=== PATIENT | female | born 1980 | race Caucasian/White ===

== ENCOUNTER 2017-05-03 09:06 | Emergency (ER) | payer SELFPAY ==
[2015-02-28 15:12] VITALS: BMI 22.2
[~2017-05-03 09:06] MED LIST: BAYER CHEWABLE81 MG PO; CATAPRES0.1 MG PO; IBUPROFEN800 MG PO; OXYMORPHONE HCL10 M1 PO; ZEBETA5 MG PO
== END 2017-05-03 17:04 | disposition home or self-care (01) ==
LOC: D.ER 09:06
DX: R51 Headache (principal)

== ENCOUNTER 2019-07-01 19:50 | Inpatient (IN) | payer MEDICAID ==
[~2019-07-01] VITALS: Ht 149.9 cm; Wt 57.6 kg
[2019-07-01 21:49] VITALS: BP 134/96
--- NOTE | 2019-07-01 21:56 | NUR ---
PT TO RADIOLOGY.
--- NOTE | 2019-07-01 22:23 | NUR ---
PT RETURNED FROM RADIOLOGY.
[2019-07-01 22:57] LABS: BASOPHILS 0.4 % (0-2); EOSINOPHILS 0.9 % (0-7); HEMATOCRIT 38.5 % (36.0-48.0); HEMOGLOBIN 11.1 g/dL (12-16); IMMATURE GRANULOCYTES 0.2 % (0-5); LYMPHOCYTES 26.3 % (15-50); MCH 22.8 pg (26.0-34.0); MCHC 28.8 g/dL (31.0-37.0); MCV 79.1 fL (80.0-100.0); MEAN PLATELET VOLUME 9.4 fL (7.4-10.4); MONOCYTES 7.6 % (2-11); NEUTROPHILS 64.6 % (40-80); PLATELET COUNT 218 10x3/uL (130-400); RBC 4.87 10x6/uL (4.00-5.40); WBC 5.6 10x3/uL (4.8-10.8)
[2019-07-01 23:12] LABS: ANION GAP 13.8 mmol/L (8-16); CALCIUM 7.9 mg/dL (8.5-10.1); CARBON DIOXIDE 24.4 mmol/L (21.0-32.0); CREATININE - SERUM 1.3 mg/dL (0.6-1.3); POTASSIUM - SERUM 5.2 mmol/L (3.5-5.1)
[2019-07-01 23:23] LABS: BILIRUBIN NEGATIVE (NEGATIVE); GLUCOSE NEGATIVE (NEGATIVE); KETONE NEGATIVE (NEGATIVE); NITRITE NEGATIVE (NEGATIVE)
[2019-07-01 23:25] LABS: BACTERIA MODERATE /hpf (NEGATIVE); EPITHELIAL CELLS 0-5 /hpf (0-5); RED CELLS - URINE 0-5 /hpf (0-5); WHITE CELLS - URINE 0-5 /hpf (NEGATIVE)
[2019-07-01 23:29] LABS: ALBUMIN 3.1 g/dL (3.4-5.0); BILIRUBIN - TOTAL 1.62 mg/dL (0.2-1.3); C-REACTIVE PROTEIN 0.6 mg/dL (0.0-0.9); PROTEIN - SERUM 7.1 g/dL (6.4-8.2)
--- NOTE | 2019-07-01 23:34 | NUR ---
PT INFORMED OF VQ SCAN, VERBALIZES UNDERSTANDING, DENIES ANY NEEDS AT THIS TIME. CALL LIGHT WITHIN REACH. WILL CONTINUE TO MONITOR.
[2019-07-02] VITALS (9 sets, daily range): BP systolic 110–149; BP diastolic 74–103; Ht 149.9 cm; Wt 57.6 kg
--- NOTE | 2019-07-02 02:52 | NUR ---
PT RESTING IN SEMI FOWLERS POSITION, STATES SHE HAS ABD PAIN. EDP NOTIFIED. NO VERBAL ORDERS GIVEN.
[2019-07-02 02:54] LABS: AMYLASE - SERUM 41 U/L (25-115)
[2019-07-02 02:59] LABS: LIPASE 40 U/L (73-393)
--- NOTE | 2019-07-02 04:19 | NUR ---
PT AMBULATED TO WHEELCHAIR WITH STEADY GAIT, AND FROM WHEELCHAIR TO BR IN MEDSURG ROOM. NURSE NOTIFIED THAT PT IN BATHROOM.
[2019-07-02 15:50] LABS: % SATURATION 5 % (15-55); IRON 23 ug/dl (35-150); TOTAL IRON BIND CAPACITY 448 ug/dl (260-445); UNSAT IRON BIND CAPACITY 425 ug/dl (150-375)
[2019-07-02 16:00] LABS: CKMB 1.4 U/L (0.0-3.6); CREATINE KINASE 66 UL (21-215); TROPONIN-I 0.016 ng/mL (0.000-0.060)
[2019-07-02 19:18] LABS: UDS - AMPHET NEGATIVE QUAL (NEGATIVE); UDS - BARB NEGATIVE QUAL (NEGATIVE); UDS - BENZO NEGATIVE QUAL (NEGATIVE); UDS - COCAINE NEGATIVE QUAL (NEGATIVE); UDS - OPIATE NEGATIVE QUAL (NEGATIVE); UDS - PCP NEGATIVE QUAL (NEGATIVE); UDS - THC POSITIVE QUAL (NEGATIVE)
--- NOTE | 2019-07-02 20:00 | NUR ---
ALERT RESTING IN BED DENIES PAIN OR NEEDS AT THIS TIME, SEE SHIFT ASSESSMENT, CALL LIGHT IN REACH
[2019-07-02 20:10] LABS: APTT 36.7 SECONDS (22.8-39.4); INR 1.36 (0.85-1.17); PROTIME 16.7 SECONDS (11.6-15.0)
[2019-07-02 20:14] LABS: CKMB 1.6 U/L (0.0-3.6); CREATINE KINASE 53 UL (21-215)
[2019-07-02 20:15] LABS: TROPONIN-I < 0.017 ng/mL (0.000-0.060)
[2019-07-03] VITALS: BP 138/84
[2019-07-03 01:46] LABS: BASOPHILS 0.5 % (0-2); EOSINOPHILS 1.4 % (0-7); HEMATOCRIT 35.9 % (36.0-48.0); HEMOGLOBIN 10.5 g/dL (12-16); IMMATURE GRANULOCYTES 0.2 % (0-5); LYMPHOCYTES 22.6 % (15-50); MCH 22.7 pg (26.0-34.0); MCHC 29.2 g/dL (31.0-37.0); MCV 77.7 fL (80.0-100.0); MEAN PLATELET VOLUME 9.9 fL (7.4-10.4); MONOCYTES 8.7 % (2-11); NEUTROPHILS 66.6 % (40-80); PLATELET COUNT 210 10x3/uL (130-400); RBC 4.62 10x6/uL (4.00-5.40); RDW 15.1 % (11.5-14.5); WBC 6.3 10x3/uL (4.8-10.8)
[2019-07-03 02:18] LABS: ALBUMIN 2.9 g/dL (3.4-5.0); ALKALINE PHOSPHATASE 95 U/L (30-120); ALT (SGPT) 17 U/L (10-68); BILIRUBIN - TOTAL 0.98 mg/dL (0.2-1.3); CALC OSMOLALITY 272 mosm/kg (275-300); CALCIUM 7.8 mg/dL (8.5-10.1); CHLORIDE - SERUM 98 mmol/L (98-107); CKMB 1.6 U/L (0.0-3.6); CREATINE KINASE 45 UL (21-215); CREATININE - SERUM 1.6 mg/dL (0.6-1.3); GLUCOSE 133 mg/dL (74-106); MAGNESIUM - SERUM 1.9 mg/dL (1.8-2.4); PHOSPHOROUS 3.3 mg/dL (2.5-4.9); POTASSIUM - SERUM 4.6 mmol/L (3.5-5.1); PROTEIN - SERUM 6.8 g/dL (6.4-8.2); SODIUM 136 mmol/L (136-145); TROPONIN-I < 0.017 ng/mL (0.000-0.060); UREA NITROGEN 11 mg/dL (7-18); eGFR NON AFRICAN AMERICAN 38 mL/min (90-120)
[2019-07-03 04:00] VITALS: BP 134/94
--- NOTE | 2019-07-03 07:20 | NUR ---
REC'D LYING IN BED AWAKE AND ALERT. RESP EVEN AND UNLABORED WITH NO DISTRESS NOTED. CAN EXPRESS NEEDS AND WANTS. C/O PAIN AT THIS TIME RATING 7/10 ON PAIN SCALE. ASSESSMENT COMPLETED. C/L IN REACH AT BEDSIDE.
[2019-07-03 09:28] VITALS: BP 142/107
--- NOTE | 2019-07-03 10:30 | NUR ---
I have reviewed this patient and I concur with the Shift Assessment completed by the Licensed Practical Nurse today this shift.
[2019-07-03 13:01] VITALS: BP 128/84
[2019-07-03 15:45] VITALS: BP 126/90
[2019-07-03 20:00] VITALS: BP 123/82
--- NOTE | 2019-07-03 20:00 | NUR ---
ALERT SITTING UP IN BED, PAIN RELIEVED AT THIS TIME WITH RECENT PAIN MEDICATION, SEE SHIFT ASSESSMENT, CALL LIGHT IN REACH
[2019-07-04] VITALS: BP 135/77
--- NOTE | 2019-07-04 02:30 | NUR ---
UNABLE TO FLUSH IV TO RIGHT JUGULAR, DC,D INTACT ATTEMPTED X 2 TO RESITE WITHOUT SUCCESS, WILL HAVE OTHER NURSE ATTEMPT
[2019-07-04 04:00] VITALS: BP 133/94
--- NOTE | 2019-07-04 04:34 | NUR ---
IV RESITED TO RIGHT FA X MULTIPLE ATTEMPTS BY ICU NURSE
--- NOTE | 2019-07-04 06:15 | NUR ---
TELEMENTRY MONITOR CALLED TO SAY PT OFF MONITOR, RT COMMING OUT OF ROOM WANTING TO KNOW WHERE PT IS, TELEMENTRY FOUND ON BED WITH HOSPITAL GOWN, ALL PERSONAL BELONGINS GONE, HS NOTIFIED, ER DOOR STAFF REPORT SEE A LADY MATCHING HER DISCRIPTION LEAVE AND GET IN CAR WITH SOMEONE
--- NOTE | 2019-07-04 07:06 | NUR ---
FRANNIE MOSQUERA ON CALLFOR DR KIDD NOTIFIED OF PT GOING AMA WITHOUT NOTIFICATIONS TO ANYONE
[2019-07-06 09:08] LABS: ANA REFLEX - DIRECT Negative (Negative)
--- NOTE | 2019-07-06 10:54 | EC ---
PATIENT:JESUS HENLEY DATE OF SERVICE: 07/02/19 SEX: F MEDICAL RECORD: [id number] DATE OF : 78 LOCATION:[facility] AGE OF PATIENT: 38 ADMISSION DATE: 07/02/19 REFERRING PHYSICIAN: INTERPRETING PHYSICIAN: SOLITARIO ROBERTSON MD ECHOCARDIOGRAM REPORT ECHO CHARGES 4 ECHO COMPLETE Date: 07/02/19 CLINICAL DIAGNOSIS: EDEMA ECHOCARDIOGRAPHIC MEASUREMENTS (adult normal given) AC root (d.<3.7cm) 2.7 cm LV Septum d (<1.2 cm> 1.1 cm Valve Excursion 1.7 cm LV Septum (systole) 1.7 cm Left Atria (s.<4.0cm> 3.0 cm LVPW d(<1.2cm) 0.6 cm RV (d.<2.3cm) 3.7 cm LVPW (sytole) 0.8 cm LV diastole(<5.6CM) 3.5 cm MV E-F(>70mm/sec) cm LV systole 1.8 cm LVOT Diameter 1.6 cm MV exc.(>10mm) cm Est.ejection fraction (50-75%) % DOPPLER: LVIT cm/sec A 66 cm/sec E 56 cm/sec LA cm/sec RVSP 66.3 mmHg LVOT 83 cm/sec AOP1/2T m/s Asc. Ao 157 cm/sec RVOT 64 cm/sec RA cm/sec PA 69 cm/sec AV Gradient Peak 9.8 mmHg AV Mean 4.9 mmHg AV Area 0.9 cm MV Gradient Peak 4.1 mmHg MV Mean 2.2 mmHg MV Area cm COMMENTS: Pewter Caster: Long [facility] Seafood Specialist: 3 Dr. Jung TAPE# PACS Pericardial Effusion N DATE OF SERVICE: Adequate 2D, color flow imaging, spectral Doppler, and M-Mode. No LVH. LV internal dimension is normal. Wall motion is normal. EF is greater than or equal to 55%. Aortic valve is tricuspid. No evidence of stenosis by Doppler interrogation. Left atrium is normal. Mitral valve shows no prolapse. Trace MR. Right-sided chambers appeared dilated. Severe TR. RV systolic pressure estimated greater than or equal to 66 mmHg via the continuity equation. ECHOCARDIOGRAM REPORT [id number] JESUS HENLEY TRANSINT:[id number] Voice Confirmation ID: [id number] DOCUMENT ID: [id number] SOLITARIO ROBERTSON MD at 1054 CC: [id number] DICTATION DATE: 07/02/19 1317 BEATER ROOM HELPER: 07/02/19 1512 DIS IN 07/04/19 [place] [id number] [place] [id number]
== END 2019-07-04 07:10 | disposition home or self-care (01) | DRG 641 ==
LOC: D.ER 19:50 → OBSVTIME 07-02 03:56 → D.MS 07-02 03:56
PROVIDERS: Family Medicine; Family Medicine Adult Medicine; Internal Medicine Pulmonary Disease; ADMIT Family Medicine; ATTEND Family Medicine
DX: E43 Unspecified severe protein-calorie malnutrition (principal); J90 Pleural effusion, not elsewhere classified; N39.0 Urinary tract infection, site not specified; F17.213 Nicotine dependence, cigarettes, with withdrawal; R60.1 Generalized edema; D64.9 Anemia, unspecified; E87.5 Hyperkalemia; I10 Essential (primary) hypertension

== ENCOUNTER 2019-07-17 16:08 | Inpatient (IN) | payer MEDICAID ==
[~2019-07-17] VITALS: Ht 149.9 cm; Wt 64.0 kg
[2019-07-17 16:48] LABS: UDS - AMPHET POSITIVE QUAL (NEGATIVE); UDS - BARB NEGATIVE QUAL (NEGATIVE); UDS - BENZO NEGATIVE QUAL (NEGATIVE); UDS - COCAINE NEGATIVE QUAL (NEGATIVE); UDS - OPIATE NEGATIVE QUAL (NEGATIVE); UDS - PCP NEGATIVE QUAL (NEGATIVE); UDS - THC POSITIVE QUAL (NEGATIVE)
[2019-07-17 17:00] LABS: BILIRUBIN NEGATIVE (NEGATIVE); GLUCOSE NEGATIVE (NEGATIVE); KETONE NEGATIVE (NEGATIVE); NITRITE NEGATIVE (NEGATIVE)
[2019-07-17 17:01] LABS: BACTERIA MODERATE /hpf (NEGATIVE); RED CELLS - URINE OCC /hpf (0-5); WHITE CELLS - URINE 0-5 /hpf (NEGATIVE)
[2019-07-17 17:33] LABS: BASOPHILS 0.3 % (0-2); EOSINOPHILS 0 % (0-7); HEMATOCRIT 41.9 % (36.0-48.0); HEMOGLOBIN 11.9 g/dL (12-16); IMMATURE GRANULOCYTES 0.2 % (0-5); LYMPHOCYTES 16.6 % (15-50); MCH 22.4 pg (26.0-34.0); MCHC 28.4 g/dL (31.0-37.0); MCV 78.9 fL (80.0-100.0); MEAN PLATELET VOLUME 11.2 fL (7.4-10.4); MONOCYTES 5.3 % (2-11); NEUTROPHILS 77.6 % (40-80); PLATELET COUNT 233 10x3/uL (130-400); RBC 5.31 10x6/uL (4.00-5.40); RDW 17.2 % (11.5-14.5); WBC 6.5 10x3/uL (4.8-10.8)
[2019-07-17 17:38] LABS: CALCIUM 8.4 mg/dL (8.5-10.1); CARBON DIOXIDE 17.1 mmol/L (21.0-32.0); CHLORIDE - SERUM 100 mmol/L (98-107); CREATININE - SERUM 1.7 mg/dL (0.6-1.3); SODIUM 131 mmol/L (136-145); UREA NITROGEN 17 mg/dL (7-18); eGFR NON AFRICAN AMERICAN 35 mL/min (90-120)
[2019-07-17 17:47] LABS: ALBUMIN 3.5 g/dL (3.4-5.0); ALKALINE PHOSPHATASE 163 U/L (30-120); ALT (SGPT) 37 U/L (10-68); AMYLASE - SERUM 44 U/L (25-115); BILIRUBIN - TOTAL 3.79 mg/dL (0.2-1.3); CALC OSMOLALITY 263 mosm/kg (275-300); GLUCOSE 79 mg/dL (74-106); LIPASE 76 U/L (73-393); PROTEIN - SERUM 8.1 g/dL (6.4-8.2); TROPONIN-I < 0.017 ng/mL (0.000-0.060)
[2019-07-17 18:22] LABS: HCG SERUM NEGATIVE (NEGATIVE)
[2019-07-17 19:14] VITALS: BP 105/76
--- NOTE | 2019-07-17 20:00 | NUR ---
PATIENT IS A OX3. MOO CASTRO,VERBALIZES ALL NEEDS.NO DISTRESS NOTED
--- NOTE | 2019-07-17 21:52 | NUR ---
REPORT RECEIVED FROM ER NURSE. AWAITING PT'S ARRIVAL TO ROOM 3517.
--- NOTE | 2019-07-17 22:00 | NUR ---
2 bolus's of NS INFUSED, ROCEPHIN IN. PT MARSHA. WELL.
--- NOTE | 2019-07-17 22:20 | NUR ---
PT TO ROOM 2135 VIA STRETCHER, ACCOMPANIED BY HOSPITAL STAFF.
[2019-07-17 23:37] VITALS: BP 145/90
[2019-07-18 01:16] VITALS: BP 104/78; BMI 28.3
[2019-07-18 04:05] VITALS: BP 144/100
--- NOTE | 2019-07-18 07:43 | NUR ---
PT AWAKE AND ORIENTED, SITTING UP IN BED DOUBLED OVER. PT SAYS "HEY I NEED A CIGARETTE BAD!", INFORMED PT THAT PER HOSPITAL POLICY SHE CAN NOT GOOUT AND SMOKE. PT BECAME FRUSTRATED AND SAID I ALREADY HAVE A NICOTINE PATCH AND IT DOESN'T WORK (I'D OFFERED PT NICOTINE PATCH). PT THEN REQUESTS A WHEELCHIAR TO KEEP IN HER ROOM, SO THAT SHE CAN ROLL AROUND THE FLOOR. INFORMED PT SHE NEEDS TO WEAR A MASK AND ONLY STAY ON OUR FLOOR. PT IS UNHAPPY. CL IN REACH, SRX2.
--- NOTE | 2019-07-18 07:56 | NUR ---
PT UNHOOKED I/V BY HERSELF SO SHE COULD TAKE A SHOWER. ADVISED FREDDY THIS.
--- NOTE | 2019-07-18 08:56 | NUR ---
PT WAS INFORMED OF RULES FOR WALKING AROUND ON THE FLOOR. PT ATTEMTPED TO LEAVE THE FLOOR ONCE, MADE IT TO THE ELVATOR (FLOOR DOORS ARE SHUT), WAS COUGHT BY HEALTH PLAN MANAGER AND INFORMED AGAIN SHE CAN ONLY WALK FLOOR. PT AGAIN MADE IT OUT THE DOORS AND WAS FOUND DOWNSTAIRS BY THE HEALTH PLAN MANAGER. ESCORTED BY ME BACK TO ROOM. IF SHE ATTEMTPS ESCAPE AGAIN I WILL REMOVE THE WHEELCHIAR. BUT BEING SHE DOES NOT ACUTALLY NEED THIS TO AMBULATE, I DO NOT FEEL IT WILL STOP THE SITUATION FROM REACCURING. WILL CNT. TO MONITOR. CL INR EACH, SRX2.
--- NOTE | 2019-07-18 09:15 | NUR ---
PT ATTEMPTED 3RD ESCAPE FROM THE FLOOR. SHE HAD HER HAND ON THE DOOR TO LEAVE BUT WAS CAUGHT BY ANOTHER NURSE. INFROEMD AGAIN TO NOT LEAVE THE FLOOR. PT IS COMPLAINING OF BEING NPO, INFOREMD HER SHE WOULD REMAIN THAT WAY UNTIL SEEN BY THE GI DOCTOR AT SOME POINT TODAY. PT CURRENTLY WEELING AROUND THE HALLWAY.
[2019-07-18 09:40] VITALS: BP 158/99
[2019-07-18 10:18] VITALS: Ht 149.9 cm; Wt 64.0 kg
--- NOTE | 2019-07-18 10:54 | NUR ---
PT AWAKE AND ORIENTED, WHEN ROUNDING FOR HOW THE PTS ARE DOING, NURSE EXPRESSED TO ME PT WAS "NOT DOING WELL". PT IS BEHAVING SHE HAS BEEN, SHE IS BREATHING HEAVILY. LUNGS ARE CLEAR, 97% ON ROOM AIR. PT IS ABLE TO AMULATE, BUT STATES SHE NOW NEEDS HELP. V/S ARE WNL. DESPITE PT STATING HOW ILL SHE IS AND HOW MUCH AID SHE REQUIRES, PT STATES SHE NEEDS TO GO OUTSIDE AND SMOKE. CL IN REACH, SRX.
--- NOTE | 2019-07-18 11:23 | NUR ---
I have reviewed this patient and I concur with the Shift Assessment completed by the Licensed Practical Nurse today this shift.
--- NOTE | 2019-07-18 12:34 | NUR ---
PT AWAKE AND ORIETNED, WAS IN THE BATHROOM FOR APPROXIMATELY 1HR, STATES SHE'S FINE. CURRENTLY LYING IN BED RESTING. CL Lonny PERLA RX2.
[2019-07-18 13:12] VITALS: BP 137/88
--- NOTE | 2019-07-18 13:17 | NUR ---
PT TOLD DR. GENAO SHE REQURIED HELP TO THE BATHROOM. TECH WENT IN AND TOLD THE PT TO TRY BY HERSELF AND HE WOULD ASSIST NECISSARY. PT GOT UP WITHOUT COMPLICATIONS THEN LEANED IN TO THE COMPUTER AND STATED SHE FELT WEAK. AID STANDBY ASSISTED HER TO THE RESTROOM. CL IN RECH, SRX2.
--- NOTE | 2019-07-18 13:49 | NUR ---
WENT INTO PTS ROOM TO ASSIST WITH LAB DRAW. PT WAS STILL IN THE BATHROOM LEANED ON THE RAIL. STATED SHE HAD TO HAVE HELP THAT SHE WAS TOO WEAK. WENT TO PT, OFFERED A HAND. PT STOOL WITHOUT ANY ASSISTACNE FROM ME AND THEN WALKED TO [place] HOLDING MY HAND. NO DIFFICULTIES NOTED. PT STATES "I'M IN A BAD WAY". VITAL SIGNS ARE STABLE AND WNL. LAB WAS UNSUCCESFUL IN BLOOD DRAW, SO WAS I. CL IN REACH, SRX2 BED LOW AND LOCKED.
[2019-07-18 17:01] LABS: BASOPHILS 0.1 % (0-2); EOSINOPHILS 0 % (0-7); HEMATOCRIT 42.4 % (36.0-48.0); HEMOGLOBIN 11.8 g/dL (12-16); IMMATURE GRANULOCYTES 0.5 % (0-5); LYMPHOCYTES 12.2 % (15-50); MCH 22.4 pg (26.0-34.0); MCHC 27.8 g/dL (31.0-37.0); MCV 80.6 fL (80.0-100.0); MEAN PLATELET VOLUME 10.6 fL (7.4-10.4); MONOCYTES 7.1 % (2-11); NEUTROPHILS 80.1 % (40-80); PLATELET COUNT 228 10x3/uL (130-400); RBC 5.26 10x6/uL (4.00-5.40); RDW 17.6 % (11.5-14.5)
[2019-07-18 17:03] LABS: WBC 11.1 10x3/uL (4.8-10.8)
[2019-07-18 17:11] LABS: APTT 43.5 SECONDS (22.8-39.4); INR 3.39 (0.85-1.17); PROTIME 33.7 SECONDS (11.6-15.0)
[2019-07-18 17:22] LABS: D-DIMER-QUANTITATIVE 6.05 ug/mLFEU (0.20-0.54)
--- NOTE | 2019-07-18 17:28 | NUR ---
PAGE INTO DR RAJAN FOR CVL PLACEMENT. AWAITING CALL BACK.
[2019-07-18 17:56] LABS: ALBUMIN 3.3 g/dL (3.4-5.0); BILIRUBIN - DIRECT 3.88 mg/dL (0.00-0.30); BILIRUBIN - INDIRECT 2.32 mg/dL (0.00-1.00); BILIRUBIN - TOTAL 6.2 mg/dL (0.2-1.3); CALCIUM 8.9 mg/dL (8.5-10.1); CREATININE - SERUM 1.8 mg/dL (0.6-1.3); MAGNESIUM - SERUM 2.1 mg/dL (1.8-2.4); PHOSPHOROUS 5.9 mg/dL (2.5-4.9); THYROID STIMULATING HORMONE 0.74 uIU/mL (0.36-3.74)
[2019-07-18 18:03] LABS: ANION GAP 29.5 mmol/L (8-16); POTASSIUM - SERUM 6.5 mmol/L (3.5-5.1)
--- NOTE | 2019-07-18 18:04 | NUR ---
DR GENAO CALLED, ORDERS RECIEVED.
--- NOTE | 2019-07-18 19:37 | NUR ---
175 PT ARRIVED FROM FLOOR VIA BED TRANSFERED TO ICU BED ON ARRIVAL.. PT IS OBTUNDED AND EYES ROLLED INTO HER HEAD SHE WAS MOANING AND YELLING OUT NOT APPROPRIATE IN HER RESPONSES,,, PUP[ILS ARE 4 AT THIS TIME.. CYANOTIC IN FINGERS AND TOES.. SHE HAD A YELLOW CLOTH PURSE AROUND HER NECK THE FLOOR NURSE SHARON STATED THAT THE PATIENT WOULD NOT LET GO AND WAS VERY PROTECTIVE OF.. PURSE REMOVED BY MYSELF AT THIS TIME AND OPENED TO REVEAL SYRINGES THAT APPEARED USED... NARCAN 1 AMP GIVEN AT THIS TIME ,, 180 PT RALLIED FROM DOSE OF NARCAN YELLING AND RESTLESS.. STATING SHE COULD NOT BREATH.. WHEN QUESTIONED WHAT WAS IN THE SYRINGES AND DID SHE TAKE ANYTHING SHE SAID YES HEROIN...SHE STATED SHE NEEDED TO PEE AND A MCLEOD CATH WAS INSERTED AND IMMIDIATE RETURN OF YELLOW URIINE OBTAINED.. DR GENAO IS PAGED AND INFORMED OF PATIENTS STATEMENT.. WHILE IS ON PHONE PT CONTINUES TO YELL OUT. 1814 PT EYES SUDDENLY ROLLED BACK PUPILS 4 AND FIXED AND GRAND MAL SEIZURE ACTIVITY NOTED.. DR GENAO CALLED AGAIN AND ATIVAN ORDERED NOT GIVEN BECAUSE IMMIDIATLYFOLLOWING SEIZURE ACTIVITY PT HEART RATE DROPPED TO 30 AND SHE BECAME APNIC BAGGING STATED AND CODE BLUE CALLED SEE CODE SHEETS...
--- NOTE | 2019-07-18 19:55 | NUR ---
[address] GENAO AND SNOW SPOKE WITH HIM .. HE STATED THAT HE DID NOT KNOW HER PARENTS PHONE NUMBER BUT DID KNOW WHERE HER FATHER LIVED AND WOULD GO TO HIS HOUSE AND TELL HIM TO CALL HERE.. [facility] D[facility] HYGIENIST CALLED AND HE RELAESED HER 1999 SISTER IN LAW CALLED AND UPDATE GIVEN SHE STATED THAT THE FATHER AND PATIENTS BROTHER WOULD BE COMING TO HOSPITAL AND THEY WOULD BE ABLE GIVE A HOME..
--- NOTE | 2019-07-18 20:00 | NUR ---
PTS SON AND FATHER HERE AT BEDSIDE
--- NOTE | 2019-07-18 20:25 | NUR ---
NOTIFIED [facility] [employer] DEPARTMENT OF NEEDLES AND SYRINGES FOUND BY NURSES FROM PREVIOUS SHIFT. DISPATCHER STATED AN OFFICER WOULD COME TO UNIT.
--- NOTE | 2019-07-18 20:35 | NUR ---
PTS BROTHER CELINE, NOTIFIED PTS SISTER ADEN NICOLE [phone] OF PTS VIA PHONE. CHAPIN HERRING RN SPOKE WITH SISTER WELL. SISTER (OKSANA) STATED SHE WOULD NOTIFY PTS 2 ADULT CHILDREN AND CALL BACK.
--- NOTE | 2019-07-18 22:40 | NUR ---
PTS MOTHER AND COUSIN HERE PTS MOTHER NEXT OF KIN WANTS [facility] AND SIGNED RELEASE AND ACCEPTED PTS BELONGINGS.
--- NOTE | 2019-07-18 22:45 | NUR ---
ATTEMPTED TO REMOVE YELLOW COLORED RING WITH COLORED STONES FROM PTS RING FINGER LEFT HAND FOR MOTHER. PTS MOTHER STATED "IF IT DOESNT COME OFF EASY JUST LEAVE ON" UNABLE TO REMOVE. INFORMED MOTHER WHEN HOME CONTACTS TO SPEAK WITH THEM ABOUT REMOVAL. PTS MOTHER VERBALIZES UNDERSTANDING
--- NOTE | 2019-07-18 23:00 | NUR ---
SUGAR NOTIFIED ERMELINDA NUÑEZ PROJECT CONSULTANT PT WAS RULED OUT SECONDARY TO IV DRUG ABUSE AND HCV. REFERRAL NUMBER [id number]
--- NOTE | 2019-07-18 23:29 | NUR ---
[facility] NOTIFIED [phone].
--- NOTE | 2019-07-18 23:55 | NUR ---
BODY RELEASED TO HOME REP
== END 2019-07-18 18:54 | DRG 871 ==
LOC: D.ER 16:08 → D.M2 19:56 → D.ICU 07-18 17:37
PROVIDERS: Family Medicine; ADMIT Family Medicine; ATTEND Family Medicine
PROC: 0BH17EZ Insertion of Endotracheal Airway into Trachea, Via Natural or Artificial Opening (ICD-10-PCS; principal; 2019-07-18)
DX: A41.9 Sepsis, unspecified organism (principal); N17.0 Acute kidney failure with tubular necrosis; J96.90 Respiratory failure, unspecified, unspecified whether with hypoxia or hypercapnia; J90 Pleural effusion, not elsewhere classified; E87.1 Hypo-osmolality and hyponatremia; F17.203 Nicotine dependence unspecified, with withdrawal; E87.2 Acidosis; N39.0 Urinary tract infection, site not specified; F15.20 Other stimulant dependence, uncomplicated; R60.1 Generalized edema; D50.9 Iron deficiency anemia, unspecified; F41.8 Other specified anxiety disorders; G89.29 Other chronic pain; E87.5 Hyperkalemia; I10 Essential (primary) hypertension; J44.9 Chronic obstructive pulmonary disease, unspecified; I27.20 Pulmonary hypertension, unspecified; G25.81 Restless legs syndrome; T40.1X1A Poisoning by heroin, accidental (unintentional), initial encounter